=== PATIENT | female | born 1950 | race African-American/Black ===

== ENCOUNTER 2017-12-22 08:34 | Emergency (ER) | payer OTHER ==
[~2017-12-22] VITALS: Ht 170.2 cm; Wt 102.1 kg
[2017-12-22] MEDS ORDERED: NORCO 5-325 TA1 EACH PO (08:41)
[2017-12-22 08:50] VITALS: BP 178/104
== END 2017-12-22 08:50 | disposition home or self-care (01) ==
LOC: ER 08:34
DX: S39.012A Strain of muscle, fascia and tendon of lower back, initial encounter (principal); E11.9 Type 2 diabetes mellitus without complications; Z88.5 Allergy status to narcotic agent; Z88.0 Allergy status to penicillin; X58.XXXA Exposure to other specified factors, initial encounter; Y92.89 Other specified places as the place of occurrence of the external cause; Y93.89 Activity, other specified; Y99.8 Other external cause status